=== PATIENT | female | born 1980 | race Caucasian/White ===

== ENCOUNTER 2016-10-25 20:21 | Emergency (ER) | payer SELFPAY ==
[2016-10-25] MEDS ORDERED: Ondansetron ODT 4 MG TAB ONE (21:14)
[2016-10-25] MEDS ORDERED: Ketorolac Tromethamine 30 MG/ML VIAL ONE (21:14)
[2016-10-25 21:26] LABS: #Basophils 0.1 thou/uL (0.0-0.2); #Eosinphils 0.1 thou/uL (0.0-0.7); #Lymphocytes 2.5 thou/uL (1.20-3.40); #Monocytes 0.7 thou/uL (0.11-0.59); #Neutrophils 2.8 thou/uL (1.40-6.50); %Eosinophils 2.2 % (0.0-10.0); %Monocytes 10.4 % (0.0-10.0); %Neutrophils 45.4 % (42.0-75.0); Hemoglobin 11.1 g/dL (12.0-16.0); Mean Corpuscular HGB CONC 34.3 g/dL (32.0-36.0); Mean Corpuscular Hemoglobin 33.9 pg (27.0-31.0); Mean Corpuscular Volume 98.8 fl (81.0-99.0); Mean Platelet Volume 5.3 fL (7.4-10.4); Platelet Count 196 thou/uL (130-400); RBC Distribution Width 13.1 % (11.5-14.5); Red Blood Cell (RBC) Count 3.28 mill/uL (4.20-5.40); White Blood Cell (WBC) Count 6.2 thou/uL (4.8-10.8)
[2016-10-25 21:38] LABS: Anion Gap 14 mmol/L (10-20); BUN (Urea Nitrogen) 19 mg/dL (7.0-18.7); Calc. Creatinine Clearance 0 mL/min (70-130); Calcium 7.8 mg/dL (7.8-10.44); Carbon Dioxide 16 mmol/L (22-29); Chloride 115 mmol/L (98-107); Estimated GFR-MDRD Greater than 90; Glucose 80 mg/dL (70-105); Potassium 3.5 mmol/L (3.5-5.1); Sodium 141 mmol/L (136-145)
== END 2016-10-25 22:23 | disposition home or self-care (01) ==
LOC: MADERS 20:21
DX: T67.5XXA Heat exhaustion, unspecified, initial encounter (principal); D64.9 Anemia, unspecified; R51 Headache; E03.9 Hypothyroidism, unspecified; J45.909 Unspecified asthma, uncomplicated; F17.210 Nicotine dependence, cigarettes, uncomplicated
CPT/HCPCS: 36415; 80048; 85025; 96374; J1885; Q0162

== ENCOUNTER 2017-01-30 16:13 | Emergency (ER) | payer SELFPAY ==
[~2017-01-30 16:13] MED LIST: Sodium Chloride Irrig Solution 250 ML BOT ONE; Sterile Water Irrigation 250 ML BOT ONE
[2017-01-30] MEDS ORDERED: HYDROcodone/Acetaminophen 10/325 mg Tablet ONE (17:32)
[2017-01-30] MEDS ORDERED: Sulfameth/Trimethoprim DS 800-160mg TAB ONE (17:32)
[2017-01-30] MEDS ORDERED: Bacitracin Zinc 1 Packet ONE (17:49)
== END 2017-01-30 18:15 | disposition home or self-care (01) ==
LOC: MADERS 16:13
DX: S61.213A Laceration without foreign body of left middle finger without damage to nail, initial encounter (principal); E03.9 Hypothyroidism, unspecified; J45.909 Unspecified asthma, uncomplicated; F31.9 Bipolar disorder, unspecified; F41.9 Anxiety disorder, unspecified; F20.9 Schizophrenia, unspecified; F17.210 Nicotine dependence, cigarettes, uncomplicated; W23.0XXA Caught, crushed, jammed, or pinched between moving objects, initial encounter
CPT/HCPCS: 99282

== ENCOUNTER 2018-08-05 16:38 | Emergency (ER) | payer SELFPAY ==
[2018-08-05] MEDS ORDERED: Bacitracin Zinc 1 Packet ONE (17:44)
[2018-08-05] MEDS ORDERED: Adacel (T-DAP) 0.5 ML SYRINGE ONE (18:11)
== END 2018-08-05 18:41 | disposition home or self-care (01) ==
LOC: MADERS 16:38
DX: S56.222A Laceration of other flexor muscle, fascia and tendon at forearm level, left arm, initial encounter (principal); E03.9 Hypothyroidism, unspecified; J45.909 Unspecified asthma, uncomplicated; F41.9 Anxiety disorder, unspecified; F32.9 Major depressive disorder, single episode, unspecified; F20.9 Schizophrenia, unspecified; F17.210 Nicotine dependence, cigarettes, uncomplicated; W26.0XXA Contact with knife, initial encounter
CPT/HCPCS: 12002; 90471; 90715

== ENCOUNTER 2018-11-24 02:21 | Emergency (ER) | payer SELFPAY ==
[2018-11-24] MEDS ORDERED: Sodium Chloride 0.9% 1,000 ML ONE (02:35)
[2018-11-24] MEDS ORDERED: Ketorolac Tromethamine 30 MG/ML VIAL ONE (02:36)
[2018-11-24 02:40] LABS: #Basophils 0.1 thou/uL (0.0-0.2); #Eosinphils 0.3 thou/uL (0.0-0.7); #Lymphocytes 2.3 thou/uL (1.20-3.40); #Monocytes 0.5 thou/uL (0.11-0.59); #Neutrophils 3.7 thou/uL (1.40-6.50); %Basophils 1.2 % (0.0-1.0); %Lymphocytes 33.2 % (21.0-51.0); %Monocytes 7.7 % (0.0-10.0); %Neutrophils 53.9 % (42.0-75.0); Hemoglobin 12.2 g/dL (12.0-16.0); Mean Corpuscular HGB CONC 33.7 g/dL (32.0-36.0); Mean Corpuscular Hemoglobin 33.1 pg (27.0-31.0); Mean Corpuscular Volume 98.4 fL (78.0-98.0); Platelet Count 279 thou/uL (130-400); Red Blood Cell (RBC) Count 3.69 mill/uL (4.20-5.40); White Blood Cell (WBC) Count 6.8 thou/uL (4.8-10.8)
[2018-11-24 02:52] LABS: ALT (SGPT) 11 U/L (8-55); AST (SGOT) 15 U/L (5-34); Albumin 4.2 g/dL (3.5-5.0); Alkaline Phosphatase 62 U/L (40-150); Anion Gap 13 mmol/L (10-20); BUN (Urea Nitrogen) 10 mg/dL (7.0-18.7); Bilirubin, Total 0.2 mg/dL (0.2-1.2); Calc. Creatinine Clearance 0 mL/min (70-130); Calcium 8.7 mg/dL (7.8-10.44); Carbon Dioxide 22 mmol/L (22-29); Chloride 108 mmol/L (98-107); Estimated GFR-MDRD Greater than 90; Globulin 2.4 g/dL (2.4-3.5); Glucose 110 mg/dL (70-105); Potassium 3.6 mmol/L (3.5-5.1); Protein, Total 6.6 g/dL (6.0-8.3); Sodium 139 mmol/L (136-145)
[2018-11-24 03:05] LABS: Bilirubin Negative (Negative); Blood, Urine Negative (Negative); Glucose, Urine (Dipstick) Negative (Negative); Leukocyte Negative (Negative); Nitrite Negative (Negative); Protein, Urine (Dipstick) Negative (Neg-Trace)
[2018-11-24 03:06] LABS: Clarity Slightly Cloudy (Clear)
[2018-11-24 03:07] LABS: Pregnancy Test - Urine (BHCG) Negative (Negative); Pregu Control Background? CLEAR/WHITE (CLR/WHITE); Pregu Control Bar Appear? YES (CONTROL BAR)
[2018-11-24 03:10] LABS: Amphetamine Detected (NotDetected); Barbiturates Screen Not Detected (NotDetected); Benzodiazepine Screen Not Detected (NotDetected); Cocaine Metabolite Screen Detected (NotDetected); Methadone Not Detected (NotDetected); Methamphetamine Not Detected (NotDetected); Opiate Screen Not Detected (NotDetected); Oxycodone Screen Not Detected (NotDetected); Phencyclidine (PCP) Not Detected (NotDetected); THC/Cannabinoid Screen Detected (NotDetected); Tricyclic Screen Not Detected (NotDetected)
[2018-11-24 03:11] LABS: Medtox Control Line Valid? VALID (VALID)
--- NOTE | 2018-11-24 08:00 | CT ---
CT OF ABDOMEN AND PELVIS NONCONTRAST: CLINICAL INDICATION: Right flank pain. FINDINGS: There is punctate, nonobstructive nephrolithiasis involving the inferior left kidney. Small hypodens ity at the lower pole of the left kidney is incompletely characterized. There are numerous hypodensi ties throughout the hepatic parenchyma indicative of cysts, although incompletely characterized. The solid abdominal organs are otherwise incompletely evaluated on the basis of noncontrast technique. No acute pathology is visualized at the imaged lower lung zones. There is a moderate volume of [place] fecal material throughout the colon. Evaluation of the osseous structures reveals no acute proce ss. Evaluation otherwise limited without the presence of IV or enteric contrast administration. IMPRESSION: 1. Nonobstructive nephrolithiasis involving the lower pole of the left kidney. 2. Numerous hepatic hypodensities indicative of cyst formation, although incompletely characterized on the basis of noncontrast technique. Additional entity such as multiple biliary hamartomas is not excluded. Consider followup on a nonemergent basis with pre- and postcontrast MRI of the abdomen. POS: NAKITA
== END 2018-11-24 05:32 | disposition home or self-care (01) ==
LOC: MADERS 02:21
DX: R10.30 Lower abdominal pain, unspecified (principal); J45.909 Unspecified asthma, uncomplicated; E03.9 Hypothyroidism, unspecified; F31.9 Bipolar disorder, unspecified; F20.9 Schizophrenia, unspecified; F17.210 Nicotine dependence, cigarettes, uncomplicated
CPT/HCPCS: 74176; 80053; 80306; 81003; 81025; 85025; 96361; 96374; J1885; J7050

== ENCOUNTER 2019-02-23 20:38 | Emergency (ER) | payer SELFPAY ==
--- NOTE | 2019-02-23 21:04 | RAD ---
Exam: Left foot 3 views: HISTORY: Left great toe pain following injury FINDINGS: There is evidence for hallux valgus. Degenerative and osteoarthrosis changes. No acute fracture or di slocation. IMPRESSION: Degenerative change without acute fracture or dislocation.
== END 2019-02-23 21:30 | disposition home or self-care (01) ==
LOC: MADERS 20:38
DX: S90.32XA Contusion of left foot, initial encounter (principal); E03.9 Hypothyroidism, unspecified; J45.909 Unspecified asthma, uncomplicated; F41.9 Anxiety disorder, unspecified; F31.9 Bipolar disorder, unspecified; F20.9 Schizophrenia, unspecified; F17.210 Nicotine dependence, cigarettes, uncomplicated; W20.8XXA Other cause of strike by thrown, projected or falling object, initial encounter

== ENCOUNTER 2019-04-16 08:32 | Emergency (ER) | payer SELFPAY ==
[2019-04-16] MEDS ORDERED: Clindamycin 150 MG CAP ONE (09:50)
[2019-04-16] MEDS ORDERED: HYDROcodone/Acetaminophen 5/325 mg Tablet ONE (09:50)
[2019-04-16] MEDS ORDERED: Lidocaine 1% 20 ML MDV ONE (09:51)
[2019-04-16] MEDS ORDERED: cefTRIAXone\\ROCEPHIN 1 GM VIAL ONE (09:51)
== END 2019-04-16 10:14 | disposition home or self-care (01) ==
LOC: MADERS 08:32
DX: K04.4 Acute apical periodontitis of pulpal origin (principal); K02.9 Dental caries, unspecified; E03.9 Hypothyroidism, unspecified; J45.909 Unspecified asthma, uncomplicated; F41.9 Anxiety disorder, unspecified; F31.9 Bipolar disorder, unspecified; F20.9 Schizophrenia, unspecified; F17.210 Nicotine dependence, cigarettes, uncomplicated
CPT/HCPCS: 96372; 99282; J0696; J2001